=== PATIENT | female | born 1990 ===

== ENCOUNTER 2022-02-14 14:15 | Inpatient (IN) | payer OTHER ==
[~2022-02-14] VITALS: Ht 170.2 cm; Wt 72.6 kg
[2022-02-19] MEDS ORDERED: PRENATAL TABLE1 EAC3 PO (11:58)
== END 2022-02-21 09:45 | disposition home or self-care (01) | DRG 807 ==
LOC: OB/GYN 02-19 10:00 → LDR 02-19 10:00 → OB/GYN 02-19 11:27
PROVIDERS: ADMIT Obstetrics & Gynecology; ATTEND Obstetrics & Gynecology
PROC: 10E0XZZ Delivery of Products of Conception, External Approach (ICD-10-PCS; principal; 2022-02-19)
PROC: 0UQG7ZZ Repair Vagina, Via Natural or Artificial Opening (ICD-10-PCS; 2022-02-19)
PROC: 4A1HXCZ Monitoring of Products of Conception, Cardiac Rate, External Approach (ICD-10-PCS; 2022-02-19)
DX: O71.4 Obstetric high vaginal laceration alone (principal); Z37.0 Single live birth; Z3A.38 38 weeks gestation of pregnancy; Z20.822 Contact with and (suspected) exposure to COVID-19

== ENCOUNTER 2024-11-24 18:47 | Inpatient (IN) | payer OTHER ==
[~2024-11-24] VITALS: Ht 170.2 cm; Wt 77.1 kg
[2024-11-24] VITALS (8 sets, daily range): BP systolic 103–135; BP diastolic 55–78
[~2024-11-24 18:47] MED LIST: CHLORHEXIDINE GLUCONATE 120 ML BOTTLE TOP ONE; ERYTHROMYCIN BASE OPHT 1GM EACH TUBE OP ONE; LIDOCAINE HCL 1% 10ML VIAL ONE; OXYTOCIN 20 UNITS/1000ML RL PIGGYBAG IV ONE; PRENATAL TABLE1 EAC3 PO
[2024-11-24] MEDS ORDERED: RINGERS SOLUTION,LACTATED 1,000 ML IV SCH (19:00)
[2024-11-24 19:09] LABS: BASO % 0.2 % (0.1-1.2); EOS # 0.08 (0.04-0.54); EOS % 0.7 % (0.7-7.0); LYMPH # 2.10 (1.18-3.74); LYMPH % 18.4 % (19.3-53.1); MEAN PLATELET VOLUME 10.70 fl (9.4-12.4); MONO # 0.84 (0.24-0.82); MONO % 7.3 % (4.7-12.5); NEUT # 8.32 (1.56-6.13); NEUT % 72.8 % (34.0-71.1); RED CELL DISTRIBUTION WIDTH 12.3 % (11.6-14.4)
[2024-11-24 19:25] LABS: INR < 0.93
[2024-11-24 19:29] LABS: ALT/SGPT 14.0 U/L (12-78); AST/SGOT 15.0 U/L (15-37); BILIRUBIN TOTAL 0.3 mg/dL (0.3-1.2); BUN CREA RATIO 19.0 (7.0-25.0); CREATININE SERUM 0.47 mg/dL (0.55-1.02); GFR 151.69; GLOBULINA 3.1 G/DL (2.4-3.5); GLUCOSE FASTING 90.0 mg/dL (65-100); OSMOLALITY SERUM 278.0 MOSM/KG (275-295)
[2024-11-24] MEDS ORDERED: METHYLERGONOVINE MALEATE 0.2 MG/ML AMPUL ONE (20:28)
[2024-11-24] MEDS ORDERED: OXYTOCIN 1,000 ML IV ONE (20:45)
[2024-11-24] MEDS ORDERED: METHYLERGONOVINE MALEATE 0.2 MG/ML AMPUL IM PRN (20:45)
[2024-11-24] MEDS ORDERED: CHLORHEXIDINE GLUCONATE 120 ML BOTTLE TP SCH (20:45)
[2024-11-24] MEDS ORDERED: ZOLOFT25 MG PO (21:46)
[2024-11-24] MEDS ORDERED: ZOFRAN8 MG PO (21:47)
[2024-11-25 00:53] VITALS: BP 109/65
[2024-11-25 06:49] LABS: BASO % 0.3 % (0.1-1.2); EOS # 0.08 (0.04-0.54); EOS % 0.5 % (0.7-7.0); LYMPH # 2.32 (1.18-3.74); LYMPH % 14.8 % (19.3-53.1); MEAN PLATELET VOLUME 10.90 fl (9.4-12.4); MONO # 1.06 (0.24-0.82); MONO % 6.8 % (4.7-12.5); NEUT # 12.05 (1.56-6.13); NEUT % 77.1 % (34.0-71.1); RED CELL DISTRIBUTION WIDTH 12.4 % (11.6-14.4)
[2024-11-25 07:46] VITALS: BP 119/76
[2024-11-25] MEDS ORDERED: PNV,CALCIUM 72/IRON/FOLIC ACID 1 TAB TABLET PO SCH (09:00)
[2024-11-25] MEDS ORDERED: SERTRALINE HCL 50 MG TABLET PO SCH (09:00)
[2024-11-25] MEDS ORDERED: DOCUSATE SODIUM 100MG CAP PO SCH (09:00)
[2024-11-25 16:00] VITALS: BP 109/73
[2024-11-26] VITALS: BP 118/73
[2024-11-26 10:00] VITALS: BP 116/76
== END 2024-11-26 13:06 | disposition home or self-care (01) | DRG 807 ==
LOC: LDR 18:47 → OB/GYN 18:47 → LDR 19:16 → OB/GYN 11-25 00:34
PROVIDERS: ADMIT Obstetrics & Gynecology Gynecology; ATTEND Obstetrics & Gynecology Gynecology
PROC: 10E0XZZ Delivery of Products of Conception, External Approach (ICD-10-PCS; principal; 2024-11-24)
PROC: 0UQG7ZZ Repair Vagina, Via Natural or Artificial Opening (ICD-10-PCS; 2024-11-24)
PROC: 4A1HXCZ Monitoring of Products of Conception, Cardiac Rate, External Approach (ICD-10-PCS; 2024-11-24)
DX: O71.4 Obstetric high vaginal laceration alone (principal); Z37.0 Single live birth; Z3A.38 38 weeks gestation of pregnancy